=== PATIENT | female | born 1950 | race Caucasian/White ===

== ENCOUNTER 2018-05-21 19:55 | Observation (INO) ==
[2018-05-21] MEDS ORDERED: Naloxone 0.4 MG/ML INJ IVP PRN (21:41)
--- NOTE | 2018-05-21 21:44 | Internal Med History&Physical ---
Date of Encounter: 05/22/18 Time of Encounter: 21:44 Internal Medicine - H&P: HPI Chief complaint: Chest Pain History of present illness: Ms. Herman is a 67 year old female with a past medical history of Posadas's esophagitis, coronary artery disease, hypertension, and hyperlipidemia who presents with a chief complaint of left-sided chest pain. Patient states that she was in her usual state of health at work earlier this afternoon when she began feeling sudden onset left-sided chest pain which she describes as sharp occurring just under the left side of her breast and radiating towards her sternum. Pain was intermittent occurring over a several hour and finally resolving after receiving aspirin at [facility] in [place]. Patient denies any associated diaphoresis, shortness of breath, palpitations or lightheadedness. Patient denies any aggravating or alleviating factors aside from the aspirin she received. Patient is a former smoker but quit smoking 30 years ago after a 33-59-ggon-year smoking history. Drinks alcohol on social occasions.She does h ave a family history of heart disease in her mother. Patient states she exercises almost daily without any issues patient reports that she has had a stress test in the past which she states was negative. She was seen by a shrink pit operator many years ago and seems to have been given a diagnosis of coronary artery disease though states she has never had a left heart catheter performed. On arrival to [facility], initial blood pressure was found to be elevated with a systolic in the 190s. Labs were unremarkable including a negative troponin 2. EKG did not show any ischemic changes however bigeminy was noted. Patient currently chest pain-free. Past Med Surg Social Fam HX - Past Medical History Medical history: arthritis, coronary artery disease, GERD, hyperlipidemia, hypertension Additional medical history: heart murmur - irreg heart beat x 1 epidosde - Psychiatric history: no psych history - Past Surgical History Surgical History: , orthopedic, other Additional surgical history: abdominal exp. lap - toe surgery - Social History Smoking Status: Former smoker Smokeless Tobacco Status: No Alcohol use: none Drug use: none - Family History Mother Living Status: Age at : 73 Hx Family Neurologic Disorders: Yes (stroke) Father Living Status: Age at : 39 Cause of : testicular cancer Hx Family Cancer: Yes (testicular) Sister Hx Family Cardiac Disorders: Yes (HTN) Hx Family Endocrine Disorder: Yes (DM) Hx Family Neurologic Disorders: Yes (stroke) Brother Living Status: Hx Family Cardiac Disorders: Yes ([place]) Internal Medicine - H&P: Meds Lisinopril [Zestril] 10 mg PO DAILY 05/21/18 [History] Multivit-Min/Iron Fum/Folic AC [Jyewx-Nujkrgu-Xdwjfcjd Tablet] DAILY 05/21/18 [History] Omeprazole [PriLOSEC] 40 mg PO DAILY 05/21/18 [History] Pravastatin Sodium [Pravachol] 40 mg PO DAILY 05/21/18 [History] Sertraline [Zoloft] 50 mg PO DAILY 05/21/18 [History] Zolpidem [Ambien] 10 mg PO HS 05/21/18 [History] Allergy/AdvReac Type Severity Reaction Status Date / Time No Known Allergies Allergy Verified 05/18/15 07:20 All Systems PM: A 10-system review of systems was performed and is negative for pertinent findings except as documented above in the HPI. - Constitutional Constitutional: no chills, no fever(s), no night sweats - EENT Eyes: no change in vision, no discharge, no pain, no photophobia Ears: no ear discharge, no ear pain, no tinnitus Nose, mouth and throat: no dysphagia, no nasal discharge, no neck pain, no sore throat - Cardiovascular Cardiovascular ROS IM: no chest pain, no diaphoresis, no dyspnea, no lig htheadedness, no palpitations, no syncope - Respiratory Respiratory: no cough, no dyspnea, no wheezing, no excessive phlegm production - Gastrointestinal Gastrointestinal: no abdominal pain, no diarrhea, no hematemesis, no hematochezia, no melena, no nausea, no vomiting - Genitourinary Genitourinary: no change in urinary stream, no dysuria, no flank pain, no hematuria - Musculoskeletal Musculoskeletal ROS IM: no numbness, no tingling - Integumentary Integumentary IM: no rash, no unusual bruising - Neurological Neurological ROS: no confusion, no convulsions, no focal weakness, no numbness, no tingling, no tremor(s) - Hematologic/Lymphatic Hematologic/Lymphatic: no easy bruising - Constitutional Exam: General: Alert and oriented Skin:Normal color, no rash, no lesions. HEENT:EOM, pupils equal, round and reactive. Cardiovascular:Normal S1 & S2, no rubs, murmurs or gallops. No JVD. Pulse regular. Lungs:Normal breath sounds, no wheezes or crackles. Abdomen:Soft, non-tender, no rigidity. Extremities:No deformity, no edema or tenderness, no joint swelling or clubbing. Neurological:Normal cognition and motor skills. Pulses:Carotid and radial pulses normal +2. Rest of the physical exam is non contributory Internal Med - H&P Results - Labs CBC & Chem 7: 05/22/18 03:08 05/22/18 03:08 - Assessment and plan (1) Chest pain Current Visit: Yes Status: Acute Assessment and plan: Atypical chest pain that is nonpleuritic, non-positional, non-reproducible. Troponins negative 2. EKG shows sinus rhythm with ventricular bigeminy. No evidence of ischemic changes. Bigeminy appears to be new when compared to previous EKG in 2016. Risk factors include age, former smoker, history of coronary artery disease and family history. Patient was given a loading dose of aspirin. Currently denies any chest pain or palpitations. -Telemetry -We will repeat troponin 1 -Initial potassium 3.9. We will will repeat electrolytes in the morning including potassium and magnesium. Replete as needed -We will obtain an echocardiogram -We will start patient on low-dose beta mason. -Cardiology consult given her poor abnormal rhythm. Qualifiers: Qualified Code(s): R07.9 - Chest pain, unspecified (2) Hypertension Current Visit: Yes Status: Acute Assessment and plan: Elevated blood pressure in the 190s at [facility]. Currently blood pressure stable in the 150s. We will continue to monitor. Qualifiers: Hypertension type: essential hypertension Qualified Code(s): I10 - Essential (primary) hypertension (3) Hyperlipidemia Current Visit: Yes Status: Acute Assessment and plan: Continue with home statin Qualifiers: Hyperlipidemia type: unspecified Qualified Code(s): E78.5 - Hyperlipidemia, unspecified (4) CAD (coronary artery disease) Current Visit: Yes Status: Acute Assessment and plan: Patient has a diagnosis of coronary artery disease given by a shrink pit operator she was seen by in the past. She is unsure why she was given this diagnosis in the absence of a [facility] and negative stress test. Qualifiers: Qualified Code(s): I25.10 - Atherosclerotic heart disease of [place] coronary artery without angina pectoris (5) DVT prophylaxis Current Visit: Yes Status: Acute - Time Spent With Patient Total time spent is greater than 50% in coordination of care (as documented) at patient's floor/unit and/or counseling patient:
[2018-05-21] MEDS ORDERED: Melatonin 3 MG TABLET PO PRN (23:50)
[2018-05-22] MEDS ORDERED: *HR* Heparin 5,000 UNIT/ML VIAL SQ SCH (01:30)
[2018-05-22 03:34] LABS: Basophils # 0.1 K/mcL (0.0-0.2); Basophils % 0.7 %; Eosinophils # 0.2 K/mcL (0.0-0.6); Eosinophils % 2.8 %; Hemoglobin 13.4 g/dL (11.5-15.4); Immature Granulocytes % 0.3 % (0-4); Lymphocytes # 2.8 K/mcL (0.6-4.6); Lymphocytes % 36.8 %; Mean Corpuscular HGB Conc 32.7 g/dL (31.6-35.5); Mean Corpuscular Hemoglobin 30.1 pg (28.0-33.3); Mean Corpuscular Volume 92.1 fL (83.0-100.0); Monocytes # 0.9 K/mcL (0.0-1.3); Monocytes % 12.1 %; Neutrophils # 3.6 K/mcL (1.6-8.9); Platelet Count 233 K/mcL (140-400); Red Blood Count 4.45 M/mcL (3.82-4.97); Red Cell Distribution Width 13.4 % (11.5-14.5); Segmented Neutrophils % 47.3 %
[2018-05-22 03:52] LABS: Alanine Aminotransferase 25 Units/L (7-52); Albumin 3.9 g/dL (3.5-5.7); Albumin/Globulin Ratio 1.5 (1.1-2.2); Alkaline Phosphatase 28 Units/L (34-104); Aspartate Amino Transferase 32 Units/L (13-39); BUN/Creatinine Ratio 24 (6-26); Bilirubin,Total 0.5 mg/dL (0.3-1.0); Blood Urea Nitrogen 16 mg/dL (8-23); Calcium 9.6 mg/dL (8.6-10.3); Carbon Dioxide 29 mEq/L (23-29); Chloride 104 mEq/L (98-107); Chol/HDL Ratio 3.4 (0-4.9); Cholesterol 165 mg/dL (< 200); Globulin 2.6 g/dL (2.4-3.5); Glucose 97 mg/dL (70-105); HDL Cholesterol 49 mg/dL (40-59); LDL Cholesterol,Calculated 95 mg/dL (0-99); Magnesium 2.2 mg/dL (1.6-2.6); Osmolality,Calculated 289 (280-300); Potassium 4.3 mEq/L (3.5-5.1); Sodium 139 mEq/L (136-145); Total Protein 6.5 g/dL (6.4-8.9); Triglycerides 105 mg/dL (< 150); eGFR For Non-African Americans > 60 (> 60)
[2018-05-22 06:45] VITALS: BP 114/63
[2018-05-22] MEDS ORDERED: Multivit/Ca/Min/Fe/FA 1 TAB TABLET PO SCH (09:00)
[2018-05-22] MEDS ORDERED: Regadenoson 0.4 MG/5 ML SYRINGE IVP ONE (11:17)
[2018-05-22] MEDS ORDERED: Metoprolol XL (24 HR) Succ 25 MG TAB.ER.24H PO SCH (14:15)
--- NOTE | 2018-05-22 14:35 | Cardiology Consult Note ---
Addendum entered and electronically signed by Edin Alvares MD 05/22/18 15:42: I examined this patient and my medical decision-making was reviewed with the WAREHOUSE DIRECTOR. I agree with the documented findings, disposition and treatment plan as described except to the extent set forth below. A/P: Chest pain Bigeminy Stress test negative, ruled out for NM, TTE structurally normal. Low dose BB, fu in clinic. Thanks for the consult, Edin Alvares MD [facility] Original Note: Date of Encounter: 05/22/18 Time of Encounter: 14:33 Assessment and Plan (1) Chest pain Current Visit: Yes Status: Acute Per cardiology: -Admitted with atypical chest pain in the setting of HTN BP 190s systolic on presentation to [facility]. -Troponins negative. -ECG with no acute ischemic changes. -Very active at home, able to excercise daily without chest pain. -Stress test today negative for ischemia or infarct. -TTE with LVEF preserved, no wall motion abnormalities noted. -Recommend BB, started. -No further inpatient cardiac testing warranted. Recommend OP follow up with cardiology. Qualifiers: Chest pain type: unspecified Qualified Code(s): R07.9 - Chest pain, unspecified (2) Bigeminy Current Visit: Yes Status: Acute Per cardiology: -Bigeminy noted on ECG. -Infrequent episodes noted on telemetry. -Will start BB. -Follow up OP cardiology. Discussion w patient/family: The assessment and plan as outlined above was discussed with the patient and/or family members who expressed understanding and agreement. All questions were answered. Thank you for involving us in the care of your patient. Please call with any questions. Discussed and reviewed with . History of Present Illness Consult date: 05/21/18 Requesting physician: Ashutosh Puente Consult reason: bigeminy, chest pain Chief complaint: chest pain History of present illness: Ms. Herman is a 67 year old female with a relevant past medical history of GERD, arthritis, HTN, HLD, ?irregular heart beat who presented to [facility] with complaints of chest pain. Patient states that pain started at rest and was underneath her left breast. No radiation. No nausea, vomiting, diaphoresis. Denies exertional symptoms. Reports BP was high when she had chest pain at home. Denies shortness of breath or fatigue. Reports she is very active at home and goes to the gym multiple times per week without chest pain. Past Med Surg Social Fam HX - Past Medical History Attestation: Yes The following information was validated with the patient. Source: patient, old records reviewed, obtained from family Medical history: arthritis, GERD, hyperlipidemia, hypertension Additional medical history: heart murmur - irreg heart beat x 1 epidosde - Psychiatric history: no psych history - Past Surgical History Surgical History: , orthopedic, other Additional surgical history: abdominal exp. lap - toe surgery - Social History Smoking Status: Former smoker Smokeless Tobacco Status: No Alcohol use: none Drug use: none - Family History Mother Living Status: Age at : 73 Hx Family Neurologic Disorders: Yes (stroke) Father Living Status: Age at : 39 Cause of : testicular cancer Hx Family Cancer: Yes (testicular) Sister Hx Family Cardiac Disorders: Yes (HTN) Hx Family Endocrine Disorder: Yes (DM) Hx Family Neurologic Disorders: Yes (stroke) Brother Living Status: Hx Family Cardiac Disorders: Yes ([place]) Medications and Allergies Lisinopril [Zestril] 10 mg PO DAILY 05/21/18 [History] Multivit-Min/Iron Fum/Folic AC [Rjops-Hqofnjo-Phyfbwju Tablet] 1 tab PO DAILY 05/21/18 [History] Omeprazole [PriLOSEC] 40 mg PO DAILY 05/21/18 [History] Pravastatin Sodium [Pravachol] 40 mg PO DAILY 05/21/18 [History] Sertraline [Zoloft] 50 mg PO DAILY 05/21/18 [History] Zolpidem [Ambien] 10 mg PO HS PRN 05/21/18 [History] Soy Isofl/Blk Coh/Gr Tea/Yerba [[employer] Caplet] 1 tab PO DAILY 05/22/18 [History] Allergy/AdvReac Type Severity Reaction Status Date / Time No Known Allergies Allergy Verified 05/22/18 08:41 All Systems Review: The remainder of the systems were reviewed and are negative - Cardiovascular Cardiovascular: as per HPI, chest pain at rest Physical Examination Vital Signs Temperature 97.3 F L 05/21/18 22:15 Pulse Rate 46 05/21/18 22:15 Respiratory Rate 16 05/21/18 22:15 Blood Pressure 153/74 05/21/18 22:15 O2 Sat by Pulse Oximetry 97 05/21/18 22:15 Temperature 97.4 F L 05/22/18 06:41 Pulse Rate 63 05/22/18 06:41 Respiratory Rate 16 05/22/18 06:41 Blood Pressure 114/63 05/22/18 06:41 O2 Sat by Pulse Oximetry 96 05/22/18 06:41 General: Conversant, No Apparent Distress HEENT: Atraumatic, Normocephaly, Mucus Membranes Moist Neck: No JVD, Normal carotid pulses Cardiac: Reg Rate and Rhythm, Normal S1 and S2, No Murmur Lungs: Normal Breath Sounds, No Wheeze, Rales, Rhonchi Neuro: Alert and responsive, No focal deficits noted Abdomen: Soft, Non-Tender Skin: No rashes noted on visualized skin Musculoskeletal: No Chest Wall Tenderness Extremities: No Clubbing, No Cyanosis, No Edema, Normal Pulses Results 05/22/18 03:08 05/22/18 03:08 Lab Results Impressions Echocardiogram 05/22/18 23:15 Impressions: Sinus rhythm with PVCs. LVEF 60%. Mild left ventricular diastolic dysfunction. Normal right ventricular structure and function. Mild-moderate pulmonic regurgitation. No pulmonary hypertension. Left Ventricular Wall Motion: Rest Echo Findings All wall segments showed normal motion. Findings: Study Quality * Technically adequate exam. ECG Findings * Sinus rhythm with PVCs. Left Ventricle * LVEF 60%. * Normal LV chamber size, wall thickness and function. * Mild left ventricular diastolic dysfunction. Right Ventricle * Normal right ventricular structure and function. Left Atrium * Mildly dilated left atrium. Right Atrium * Normal right atrial size. Mitral Valve * No mitral stenosis. * Normal mitral valve structure. * Trace mitral regurgitation. Aortic Valve * No aortic regurgitation. * No aortic stenosis. * Aortic valve not well visualized. Tricuspid Valve * Normal tricuspid valve structure. * Trace tricuspid regurgitation. Pulmonic Valve * Pulmonic valve is not well visualized. * No pulmonic stenosis. * Mild-moderate pulmonic regurgitation. Pulmonary Artery * Pulmonary artery not well visualized. Aorta * Normally sized aortic root. Pericardium * There is no pericardial effusion present. Interatrial Septum * No evidence of PFO by color Doppler. IVC * The IVC is not dilated. Active Medications Atorvastatin Calcium (Lipitor) 10 mg PO DAILY [facility]UP[facility]ER Stop: 11/21/18 09:01 Heparin Sodium (Porcine) (Heparin) 5,000 unit SQ Q8HCO [facility] Stop: 11/21/18 01:31 Last Admin: 05/22/18 14:22 Dose: Not Given Lisinopril (Zestril) 10 mg PO DAILY [facility]; Protocol Stop: 11/21/18 09:01 Melatonin (Melatonin) 3 mg PO HS PRN PRN Reason: Insomnia Stop: 11/20/18 23:51 Last Admin: 05/22/18 00:04 Dose: 3 mg Metoprolol Succinate (Toprol Xl) 25 mg PO DAILY [facility] Stop: 11/21/18 14:16 Multivitamins/Calcium (Thera M Plus) 1 tab PO DAILY [facility] Stop: 11/21/18 09:01 Naloxone HCl (Narcan) 0.4 mg IVP Q2MIN PRN PRN Reason: SEE COMMENTS Stop: 11/20/18 21:42 Omeprazole (Prilosec) 40 mg PO DAILY [facility] Stop: 11/21/18 09:01 Laboratory Tests 05/22/18 05/22/18 05/22/18 03:08 03:08 03:08 Hgb 13.4 Potassium 4.3 Creatinine 0.67 Magnesium 2.2 Troponin I < 0.03 - Imaging and Cardiology Chest Xray: report reviewed Stress Test: report reviewed Echo: report reviewed - EKG Interpretation EKG results cardiology: personally reviewed (ECG with bigeminy, HR 95.), other (Telemetry reviewed with average HR previous 12 hours noted to be 74, SR. PVCs noted. Intermittent bigeminy noted.) Consult Discharge Plan - Plan Referrals: NONE,PCP [Primary Care Provider] -
--- NOTE | 2018-05-22 14:59 | Discharge Summary ---
- NOTES TO OUTPATIENT PROVIDER Notes to Outpatient Provider: Patient with history of hypertension, HLD, ?CAD, was admitted for atypical chest pain. EKG showing ventricular bigeminy. Serial troponins negative. Echo unremarkable. Stress -ve for ischemia. She was started on bb and was discharged home with cardiology follow up outpatient. Orders not resulted at time of discharge: Pending orders 05/21/18 21:41 ECG 12 lead ECG [ECG] Stat 05/22/18 08:13 EKG [ECG 12 lead ECG] [ECG] Stat 05/22/18 08:14 NM vanessa perf SPECT multi [NM] Routine Date of Encounter: 05/22/18 Time of Encounter: 12:00 - Discharge Diagnosis (1) Chest pain Priority: Primary Status: Acute Qualifiers: Chest pain type: unspecified Qualified Code(s): R07.9 - Chest pain, unspecified (2) Hypertension Priority: Secondary Status: Acute Qualifiers: Hypertension type: essential hypertension Qualified Code(s): I10 - Essential (primary) hypertension (3) Hyperlipidemia Priority: Secondary Status: Acute Qualifiers: Hyperlipidemia type: unspecified Qualified Code(s): E78.5 - Hyperlipidemia, unspecified (4) CAD (coronary artery disease) Priority: Secondary Status: Acute Qualifiers: Qualified Code(s): I25.10 - Atherosclerotic heart disease of [place] coronary artery without angina pectoris (5) DVT prophylaxis Priority: Secondary Status: Acute (6) Bigeminy Priority: Secondary Status: Acute Hospital course: Ms. Herman is a 67 year old female with history of hypertension, HLD, ?CAD, who was admitted for atypical chest pain. EKG showing ventricular bigeminy. Serial troponins negative. Echo unremarkable. Stress -ve for ischemia. She was started on bb and was discharged home with cardiology follow up outpatient. Discharge discussed with: patient, customer care consultant - Time Spent with Patient Total time spent providing and/or coordinating discharge services: 23 mins - Discharge Medications Prescriptions: Metoprolol XL (24 HR) Succ [Toprol Xl] 25 mg PO DAILY #30 tab.er.24h Home Medications: Lisinopril [Zestril] 10 mg PO DAILY 05/21/18 [History] Multivit-Min/Iron Fum/Folic AC [Imrnb-Aparffj-Pnnuktjd Tablet] 1 tab PO DAILY 05/21/18 [History] Omeprazole [PriLOSEC] 40 mg PO DAILY 05/21/18 [History] Pravastatin Sodium [Pravachol] 40 mg PO DAILY 05/21/18 [History] Sertraline [Zoloft] 50 mg PO DAILY 05/21/18 [History] Zolpidem [Ambien] 10 mg PO HS PRN 05/21/18 [History] Metoprolol XL (24 HR) Succ [Toprol Xl] 25 mg PO DAILY #30 tab.er.24h 05/22/18 [Rx] Soy Isofl/Blk Coh/Gr Tea/Yerba [[employer] Caplet] 1 tab PO DAILY 05/22/18 [History] Allergies/Adverse Reactions: Allergy/AdvReac Type Severity Reaction Status Date / Time No Known Allergies Allergy Verified 05/22/18 08:41 Date of admission: 05/21/18 21:19 Primary care physician: PCP NONE Consults: 05/21/18 23:15 Consult to Cardiology [CONS] Routine Comment: Consulting Provider: Cardiology Kailey Reason for Consult: History of coronary artery disease presents with left- sided chest pain. Bigeminy on EKG Call Completed: No - Constitutional Vitals: Temp Pulse Resp BP Pulse Ox 97.4 F L 63 16 114/63 96 05/22/18 06:41 05/22/18 06:41 05/22/18 06:41 05/22/18 06:41 05/22/18 06:41 Exam: General: Alert and oriented, not in acute distress. Cardiovascular:Normal S1 & S2, No JVD. Pulse regular. Lungs: clear to auscultation, no wheezes/rales Abdomen:Soft, non-tender, no rigidity. Extremities:No deformity or swelling Neurological:Normal cognition and motor skills. Non-focal - Patient Status Disposition: Home, Self-Care Condition: Good Functional capacity at discharge: independent ambulation Overall status at discharge: patient is back to baseline - Discharge Instructions Instructions: Chest Pain (DC), Chronic Hypertension (DC) Follow Up With: NONE,PCP [Primary Care Provider] - Edin Alvares MD [Partnered Physician] - Additional Instructions: Started on Toprol XL 25mg QD Follow up with cardiology outpatient - Diet and Activity Activity: resume usual activities as tolerated Diet: low salt diet
[2018-05-23] MEDS ORDERED: Aspirin Enteric Coated 81 MG Tablet PO SCH (09:00)
== END 2018-05-22 15:39 | disposition home or self-care (01) ==
LOC: 3BNU → SUATTDRO 21:19
PROVIDERS: ADMIT Internal Medicine; ATTEND Internal Medicine